=== PATIENT | female | born 1960 | race Caucasian/White ===

== ENCOUNTER 2016-09-22 18:29 | Emergency (ER) | payer SELFPAY ==
[2016-09-22] MEDS ORDERED: HYDROcodone/ACETAMIN 5-325 MG* 1 TAB PO ONE (19:43)
[2016-09-22] MEDS ORDERED: Ibuprofen TAB* 800 MG PO ONE (19:43)
--- NOTE | 2016-09-22 20:15 | RAD ---
INDICATION: Right arm pain after trip and fall injury TECHNIQUE: 2 views of the right forearm were obtained. FINDINGS: There is a minimally displaced fracture through the distal right ulnar metaphysis. Remaining visualized bones are intact and properly aligned. IMPRESSION: Minimally displaced distal right ulnar metaphysis fracture.
[2016-09-22] MEDS ORDERED: oxyCODONE/Acetamin 5/325 MG* TAB PO ONE (21:07)
[2016-09-22 21:27] VITALS: BP 126/71
--- NOTE | 2016-09-27 23:44 | ED ---
Upper Extremity Pain - HPI Summary HPI Summary: Pt here w/ fall and injury to Rt arm. Was walking through her yard and stepped on uneven ground. Landed on a rock w/ Rt forearm blocking her fall over a rock ( forearm struck rock) - pain, swelling and bruising now over forearm - wrist hurts as well. Can move fingers and elbow but is painful. Can move shoulder w/o limitations. Denies numbness, tingling, weakness. 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 - Allergies/Home Medications Allergies/Adverse Reactions: Allergies Allergy/AdvReac Type Severity Reaction Status Date / Time Penicillins Allergy Unknown Verified 09/22/16 19:13 Reaction Details PMH/Surg Hx/FS Hx/Imm Hx Previously Healthy: Yes Endocrine/Hematology History: Denies: Hx Anticoagulant Therapy, Hx Blood Disorders Infectious Disease History: No Infectious Disease History: Denies: Traveled Outside the in Last 30 Days - Social History Occupation: Unemployed Lives: With Family Alcohol Use: Daily Alcohol Amount: 1 glass wine Hx Substance Use: No Substance Use Type: Reports: None Hx Tobacco Use: No Smoking Status (MU): Never Smoked Tobacco Review of Systems Constitutional: Negative Eyes: Negative Negative: Dental Pain Negative: Chest Pain Negative: Shortness Of Breath Negative: Abdominal Pain, Vomiting, Nausea Positive: no symptoms reported Musculoskeletal: Other - see HPI Positive: Bruising - see HPI Neurological: Negative Positive: Anxious All Other Systems Reviewed And Are Negative: Yes Physical Exam Triage Information Reviewed: Yes Vital Signs On Initial Exam: Initial Vitals Temp Pulse Resp BP Pulse Ox 99.6 F 87 20 102/59 97 09/22/16 18:33 09/22/16 18:33 09/22/16 18:33 09/22/16 18:33 09/22/16 18:33 Vital Signs Reviewed: Yes Appearance: Positive: Well-Appearing, Well-Nourished, Pain Distress Skin: Positive: Warm, Dry - erythema and ecchymosis over volar aspect of Rt forearm - no blood or skin breakdown Head/Face: Positive: Normal Head/Face Inspection Eyes: Positive: Normal, EOMI, CAMERON, Conjunctiva Clear ENT: Positive: Hearing grossly normal Dental: Negative: Dental Fracture @ Neck: Positive: Supple, Nontender Respiratory/Lung Sounds: Positive: Breath Sounds Present Cardiovascular: Positive: Normal, Pulses are Symmetrical in both Upper and Lower Extremities Musculoskeletal: Positive: Strength/ROM Intact, Limited @ - Rt wrist; supination /pronation w/ forearm/wrist d/t pain, Pain @ - Rt forearm TTP Neurological: Positive: Normal, Sensory/Motor Intact, Alert, Oriented to Person Place, Time, CN Intact II-III Psychiatric: Positive: Normal Diagnostics - Vital Signs Vital Signs Temp Pulse Resp BP Pulse Ox 09/22/16 21:25 98 F 74 20 126/71 09/22/16 21:18 22 09/22/16 18:36 98.7 F 83 20 102/59 96 09/22/16 18:33 99.6 F 87 20 102/59 97 - Laboratory Lab Statement: Any lab studies that have been ordered have been reviewed, and results considered in the medical decision making process. Re-Evaluation - Re-Evaluation First Eval Change: Improved Course/Dx - Course Course Of Treatment: Pt here w/ Rt forearm pain after falling onto rock. Distal ulnar fx (non-displaced). Pain meds and splint provided. Education about care and directions re: f/u. Pt and partner agree w/ plan. Reviewed danger s/sx of when to return to ED. - Diagnoses Provider Diagnoses: Closed fracture of distal end of right ulna Discharge - Discharge Plan Condition: Stable Disposition: HOME Prescriptions: Ibuprofen TAB* [Motrin TAB* 600 MG] 600 mg PO Q6H PRN #20 tab PRN Reason: Pain oxyCODONE/Acetamin 5/325 MG* [Percocet 5/325 TAB*] 1 tab PO Q6H PRN #15 tab MDD 4 PRN Reason: Pain Patient Education Materials: Arm Fracture in Adults (ED), Splint Care (ED) Referrals: Phan Lowe MD [Medical Doctor] - Additional Instructions: Rest, ice, elevate Keep splint clean, dry and in place until seen by orthopedist - call tomorrow to schedule an appointment You may take ibuprofen (prescription supplied) for pain and swelling as well as percocet (narcotic pain medication) for breakthrough pain. The latter may cause drowsiness, nausea, constipation. Stay hydrated, avoid alcohol and take with food. *If your fingers are numb or discolored, you may loosen FELIPE wrap for 20 minutes. If symptoms persist, return to ED
== END 2016-09-22 21:25 | disposition home or self-care (01) ==
LOC: ED 18:29
DX: S52.601A Unspecified fracture of lower end of right ulna, initial encounter for closed fracture (principal); F41.9 Anxiety disorder, unspecified; W19.XXXA Unspecified fall, initial encounter; Y93.9 Activity, unspecified; Y92.9 Unspecified place or not applicable; Y99.9 Unspecified external cause status
CPT/HCPCS: 99282; A9270-GY

== ENCOUNTER 2016-12-07 12:22 | Day surgery (SDC) | payer MEDICAID ==
[~2016-12-07 12:22] MED LIST: Buffered Lidocaine 0.9% SYRIN* 5 ML/SYR SYRINGE INTRADERM ONE; Dexamethasone IV* 4 MG/ML 1 ML (4 MG) IV SLOW PU ONE; Famotidine IV* 10 MG/ML 2 ML (20 mg) IV ONE
[2016-12-07] MEDS ORDERED: Dexamethasone IV* 4 MG/ML 1 ML (4 MG) ONE ×2 (13:22)
[2016-12-07] MEDS ORDERED: Clindamycin 900 MG IVPREMIX(* 900 MG/50 ML SDV IV ONE ×2 (13:22)
[2016-12-07] MEDS ORDERED: Famotidine IV* 10 MG/ML 2 ML (20 mg) ONE ×2 (13:22)
[2016-12-07] MEDS ORDERED: Bupivacaine 0.25% SDV* 30 ML ONE ×2 (15:08)
[2016-12-07] MEDS ORDERED: Propofol* 10 MG/ML 20 ML BTL IV PUSH ONE ×2 (15:23)
[2016-12-07] MEDS ORDERED: Lidocaine 2% PF * 5 ML VIAL ONE ×2 (15:23)
[2016-12-07] MEDS ORDERED: Midazolam* 1 MG/ML 2 ML VIAL (2 MG) ONE ×2 (15:23)
[2016-12-07] MEDS ORDERED: fentaNYL* 50 MCG/ML 2 ML VIAL (100 MCG VIAL) ONE ×6 (15:24→17:56)
[2016-12-07] MEDS ORDERED: Ketorolac INJ* 30 MG/ML 1 ML VIAL ONE ×2 (15:44)
[2016-12-07] MEDS ORDERED: HYDROcodone/ACETAMIN 5-325 MG* 1 TAB PO PRN (16:02)
[2016-12-07] MEDS ORDERED: oxyCODONE/Acetamin 5/325 MG* TAB PO PRN (16:02)
[2016-12-07] MEDS ORDERED: fentaNYL* 50 MCG/ML 2 ML VIAL (100 MCG VIAL) IV PRN (16:02)
[2016-12-07] MEDS ORDERED: PROCHLORPERAZINE INJ 5 MG/ML 2 ML VIAL IV PRN (16:02)
[2016-12-07] MEDS ORDERED: EPHEDrine (Pressors)* 50 MG/ML VIAL ONE ×2 (16:06)
[2016-12-07] MEDS ORDERED: Ondansetron INJ* 2 MG/ML VIAL ONE ×2 (16:09)
[2016-12-07] MEDS ORDERED: HYDROcodone/ACETAMIN 5-325 MG* 1 TAB ONE ×2 (18:31)
[2016-12-07 19:28] VITALS: BP 107/52
--- NOTE | 2016-12-08 13:30 | OP ---
DATE OF OPERATION: 12/07/16 - [facility] DATE OF : 62 SURGEON: Phan Lowe MD ASSISTANTS: 1. GABRIELLA Queen 2. GABRIELLA Roberts An assistant plant controller was needed throughout the entirety of the procedure to aide with positioning of the arm, retraction, and instrumentation. ANESTHESIOLOGIST: Dr. Hensley. ANESTHESIA: General. 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 OPERATIVE PROCEDURE: Repair of distal ulnar shaft nonunion with distal radius autogenous bone graft. INDICATIONS: Magdalena fractured her arm on 09/22/16. She is still having severe pain at the fracture site. She has developed beginnings of a regional pain syndrome. Repeat imaging taken 10 weeks after the fracture show minimal bony bridging and minimal callus formation and progression of bony healing on serial x- rays. I talked to Magdalena about options including letting this go and giving it more time versus intervening in the form of surgery to clean up, reduce, and compress the nonunion and also augment that with some distal radius bone graft. We talked about the risks and benefits including the risk of ulnar sensory nerve injury as well as infection, nonunion, malunion, hardware irritation, and need for hardware removal. She wanted to proceed with surgery. ESTIMATED BLOOD LOSS: 10 mL. COMPLICATIONS: None. FINDINGS: Significant disorganized tissue at the nonunion site. DESCRIPTION OF PROCEDURE: Magdalena was seen in the preoperative holding area. She had a consult by the Behavior Medicine people as there is some concern about her having suicidal ideations. The consult recommended no further intervention that we could proceed with the outpatient surgery. We then brought her back to the operating room. The correct site, side, and procedure were identified. A formal time-out was performed. I began by making a longitudinal incision over the subcutaneous border of the ulna. Dissection was carried down longitudinally and care was taken distally to preserve the dorsal ulnar sensory nerve. The periosteum was split in line with the ulna and it was freed up around the nonunion site. There was a significant amount of disorganized tissue all around the nonunion site, it is bulbous and hypertrophied. This was all excised back to healthy normal bone edges to the extent possible with the use of curette, osteotome, and a rongeur. Once I had nice normal-looking ulnar bone, I went ahead and tried to reduce this. It was very stiff because of her having been several millimeters short for 10 weeks. Ultimately, I decided the best thing to do was to freshen up the bone with two oblique parallel osteotomies, taking off a millimeter of bone on each side. I brought in the sagittal saw and this was performed. This gave me great oblique bony edges that could be opposed nicely. I went ahead and tried to size my plates. I brought in a 3.5 plate to see if it would fit, although I thought it was unlikely. It indeed was too large and so it would have been way too bulky and prominent distally, and I would have only gotten at most 2 screws distally. I therefore selected a 2.7 plate off the Synthes locking mini-fragment set. This was clamped on to the distal ulnar fragment and secured with one 2.7 cortical screw. I then reduced the nonunion and clamped it into place together with the plate in place. I checked everything on mini C-arm. Everything looked good, so I went ahead and placed my first 2.7 cortical screw proximally in compression mode. I guided the compression with the use of a lobster claw clamp. This generated excellent compression. I followed this with another 2.7 cortical screw in compression mode. This generated phenomenal compression across the osteotomy site. I then placed another cortical screw distally and then one locking screw most distally in the plate. I filled the remaining 2 holes of the plate proximally with one more cortical and one locking screw as her bone had quite a bit of disuse osteopenia and was really quite soft even for being an ulnar shaft. At this point, I checked a mini C-arm imaging. I could not see the nonunion site. The position was very nice. Given the fact that she has developing a regional pain syndrome and I want to move her sooner rather than later, I wanted to give the bone extra strength and so I took a 2.4 plate off of the locking mini- fragment plate set and put this anteromedial. The prior plate was placed posterior. The 2.4 plate was clamped into place and then filled with a combination of locking and cortical screws. I wanted to put locking screws distally; however, the screw holes for the locking screws would have been blocked by the previously placed 2.7 screws, and so I used the cortical screws distally. Everything got a nice bite. I was very satisfied with the fixation. I had a little bony window where I had attempted to place a lag screw earlier and had decided not to, so I used that to pack all the distal radius bone graft that I had taken into the nonunion site. Please note that after preparing the nonunion site, I had laid the arm down and made a 1.5 cm longitudinal incision just proximal to Miquel's tubercle. Dissection was carried down longitudinally and full-thickness subperiosteal flaps were placed retracting the second dorsal compartment tendons. A small osteotome had been used to create small cortical window and then the curette was used to take a distal radius metaphyseal bone graft, which was passed off in a small cut. That wound was then irrigated and closed with 4-0 nylon suture. After I had packed my nonunion site with all the bone graft, I went ahead and closed my periosteal layer with 3-0 Polysorb suture. The skin was closed with 3 -0 Monocryl suture and Steri-Strips. All the operative sites were infiltrated with 0.25% plain Marcaine. The wounds were dressed with Xeroform, 4x4, sterile Webril, and a sugar-tong splint was placed with the arm in neutral rotation. The tourniquet was deflated. The arm had been exsanguinated and the tourniquet inflated to 250 mmHg prior to making the skin incision. The hand pinked up immediately. Total tourniquet time was just a few minutes over 120 minutes. She was then woken up and taken to the recovery room in stable condition. [id number]/[facility] #: [id number] DAJUAN
--- NOTE | 2016-12-08 16:07 | RAD ---
CPT II Codes: 6045F INDICATION: Right arm radius fracture 23 seconds of fluoroscopy time was used. Fluoroscopic services provided for referring physician. The images demonstrates internal fixation of a ulnar fracture distally with plate and screws. IMPRESSION: Fluoroscopic services provided for referring physician for internal fixation of the radius.
== END 2016-12-07 19:28 | disposition home or self-care (01) ==
LOC: OREAST 12:22
PROVIDERS: ATTEND Orthopaedic Surgery Hand Surgery
DX: S52.201K Unspecified fracture of shaft of right ulna, subsequent encounter for closed fracture with nonunion (principal); Z87.891 Personal history of nicotine dependence; G90.511 Complex regional pain syndrome I of right upper limb; W19.XXXD Unspecified fall, subsequent encounter
CPT/HCPCS: 76000; C1713; C1776; J1100; J1885; J2250; J2405; J2704; J3010

== ENCOUNTER 2016-12-07 20:40 | Emergency (ER) | payer MEDICAID ==
[2016-12-07 22:49] VITALS: BP 116/57
[2016-12-07] MEDS ORDERED: Morphine INJ* 4 MG/ML 1 ML SYRINGE IM ONE (22:50)
--- NOTE | 2016-12-24 15:31 | ED ---
Maia Raines Edward, scribed for Tanner Calix MD on 12/07/16 at 2245 . Upper Extremity Pain - HPI Summary HPI Summary: 56 y/o female presents to the ED c/o gradual onset RUE pain s/p RUE surgery today at the orthopedic surgeon's office (Dr. Snyder). Pain is aggravated with movement and severity is rated 5/10 at triage. Associated sx: swelling of R fingers (fingers have become purple), numbness/tingling in R fingers, pain in R elbow, R shoulder and R toe (burning pain). Patient had a plate and screws placed. Patient broke her RUE over a month ago and had a cast placed, which was removed on 11/06/16. PMHx regional pain syndrome starting 10 days after the patient broke her R arm. - History of Current Complaint Chief Complaint: EDGeneral Stated Complaint: POST SURGERY/NUMBNESS IN FINGERS Time Seen by Provider: 12/07/16 22:33 Hx Obtained From: Patient Mechanism Of Injury: Fall From Height Of: - over 1 month ago Onset/Duration: Started Hours Ago - Pain s/p surgery today, Started Weeks Ago - Broke R arm over 1 month ago, Still Present Timing: Constant Pain Location: Shoulder - R, Forearm - R, Hand - R arm, Finger - R fingers, Other: - R toes Aggravating Factor(s): Movement Associated Signs & Symptoms: Positive: Swelling - RUE, Numbness/Tingling - R fingers, Other - R shoulder, R toe burning pain - Allergies/Home Medications Allergies/Adverse Reactions: Allergies Allergy/AdvReac Type Severity Reaction Status Date / Time Latex Allergy Intermediate Hives Verified 12/07/16 13:27 Penicillins Allergy Rash Verified 12/07/16 13:27 Erythromycin AdvReac Nausea And Verified 12/07/16 13:44 Vomiting PMH/Surg Hx/FS Hx/Imm Hx Previously Healthy: No Endocrine/Hematology History: Denies: Hx Anticoagulant Therapy, Hx Blood Disorders - Surgical History Surgery Procedure, Year, and Place: RUE surgery 12/07/16 - plate and screws placed. wisdom teeth removed x2 Infectious Disease History: Denies: Traveled Outside the [place] in Last 30 Days - Social History Lives: With Family Alcohol Use: Daily Alcohol Amount: 1 glass wine Hx Substance Use: No Substance Use Type: Reports: None Hx Tobacco Use: No Smoking Status (MU): Never Smoked Tobacco Review of Systems Negative: Fever, Chills Negative: Erythema Negative: Sore Throat Negative: Chest Pain Negative: Shortness Of Breath, Cough Negative: Abdominal Pain, Vomiting, Nausea Negative: dysuria, hematuria Positive: Arthralgia - R hand, R fingers, R shoulder and R toes (burning pain), Edema - R fingers. Negative: Myalgia Negative: Bruising Neurological: Other - No dizziness Positive: Numbness - Numbness/tingling in R fingers All Other Systems Reviewed And Are Negative: Yes Physical Exam - Summary Physical Exam Summary: Constitutional: Well-developed, Well-nourished, Alert. (-) Distressed Skin: Warm, Dry HENT: Normocephalic; Atraumatic Eyes: Conjunctiva normal Neck: Musculoskeletal ROM normal neck. (-) JVD, (-) Stridor, (-) Tracheal deviation Cardio: Rhythm regular, rate normal, Heart sounds normal; Intact distal pulses; The pedal pulses are 2+ and symmetric. Radial pulses are 2+ and symmetric. (-) Murmur Pulmonary/Chest wall: Effort normal. (-) Respiratory distress, (-) Wheezes, (-) Rales Abd: Soft, (-) Tenderness, (-) Distension, (-) Guarding, (-) Rebound Musculoskeletal: (-) Edema Extremities: Diminished sensation in all R fingers. No swelling, good ROM in R fingers. Capillary refill less than 2 seconds. Lymph: (-) Cervical adenopathy Neuro: Alert, Oriented x3 Psych: Mood and affect Normal Triage Information Reviewed: Yes Vital Signs On Initial Exam: Initial Vitals Temp Pulse Resp BP Pulse Ox 98.5 F 62 20 116/50 100 12/07/16 21:01 12/07/16 21:01 12/07/16 21:01 12/07/16 21:01 12/07/16 21:01 Vital Signs Reviewed: Yes Procedures - Procedure Summary Procedure Summary: Old splint removed. New sugar tong splint placed on R arm - 30 cm, 3 inch orthoglass splint w/ padding. Numbness improved. Pt has no pain with movement. Diagnostics - Vital Signs Vital Signs Temp Pulse Resp BP Pulse Ox 12/07/16 21:01 98.5 F 62 20 116/50 100 - Laboratory Lab Statement: Any lab studies that have been ordered have been reviewed, and results considered in the medical decision making process. Course/Dx - Course Assessment/Plan: 56 y/o female presents to the ED c/o gradual onset RUE pain s/ p RUE surgery today at the orthopedic surgeon's office. Associated sx: numbness/ tingling in R fingers, pain in R elbow, R shoulder and R toe burning pain. Patient had a plate and screws placed. Patient broke her RUE over a month ago and had a cast placed, which was removed on 11/06/16. PMHx regional pain syndrome , starting 10 days after the patient broke her R arm. Spoke with Dr. Wolf @ 23:30, who wants us to verify no pain with passive rom in fingers. Loosen splint and verify she improves. Observe her for 15 minutes s/p splint removal. Procedure done in ED course (see procedure note). On observation after splint removal and new splint placement, pt's numbness has improved and there is no pain in the fingers with ROM. Pt will be d/c home with f/u in the morning with Dr. Lowe. - Diagnoses Provider Diagnoses: Post-operative paresthesia, Ulnar nerve compression - Physician Notifications Discussed Care of Patient With: Jose Wolf Time Discussed With Above Provider: 23:30 Instructed by Provider To: Other - Verify no pain with passive rom in fingers. Loosen splint and verify she improves. Observe her for 15 minutes s/p splint removal. Discharge - Discharge Plan Condition: Stable Disposition: HOME Patient Education Materials: Paresthesia (ED) Referrals: Phan Lowe MD [Medical Doctor] - 1 Day (Please f/u in the morning) The documentation as recorded by the Maia mckeon Edward accurately reflects the service I personally performed and the decisions made by , Tanner Calix MD.
== END 2016-12-08 00:09 | disposition home or self-care (01) ==
LOC: ED 20:40
DX: R20.2 Paresthesia of skin (principal); G56.21 Lesion of ulnar nerve, right upper limb; M79.641 Pain in right hand; M79.644 Pain in right finger(s); M25.511 Pain in right shoulder; M79.674 Pain in right toe(s); R60.0 Localized edema; Z98.890 Other specified postprocedural states; Z88.0 Allergy status to penicillin; Z88.1 Allergy status to other antibiotic agents; Z91.040 Latex allergy status
CPT/HCPCS: 96372; 99282; J2270

== ENCOUNTER 2017-09-09 19:12 | Emergency (ER) | payer OTHER ==
[2017-09-09 19:33] VITALS: BP 106/63
--- NOTE | 2017-09-09 19:50 | ED ---
Upper Extremity Pain - HPI Summary HPI Summary: 57-year-old female presents with right arm pain for the past month. 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 She states she had surgery this past December for an ulnar fracture. She states she developed complex pain syndrome afterwards. She states she still has numbness of the surgical site from after the surgey. She denies any numbness or tingling of her hands. She denies any weakness. She is not dropping anything. she has an appointment with provider tomorrow and the provider wants x-rays done. - History of Current Complaint Chief Complaint: UCUpperExtremity Stated Complaint: ARM PAIN Time Seen by Provider: 09/09/17 19:37 - Allergies/Home Medications Allergies/Adverse Reactions: Allergies Allergy/AdvReac Type Severity Reaction Status Date / Time latex Allergy Intermediate Hives Verified 09/09/17 19:40 Penicillins Allergy Intermediate Rash Verified 09/09/17 19:40 erythromycin base Allergy Nausea And Verified 09/09/17 19:40 Vomiting PMH/Surg Hx/FS Hx/Imm Hx Endocrine/Hematology History: Denies: Hx Anticoagulant Therapy, Hx Blood Disorders Musculoskeletal History: Reports: Other Musculoskeletal History - compression fracture in back Sensory History: Reports: Hx Contacts or Glasses - reading Denies: Hx Cataracts, Hx Hearing Aid Opthamlomology History: Reports: Hx Contacts or Glasses - reading Denies: Hx Cataracts - Cancer History Hx Chemotherapy: No - Surgical History Surgery Procedure, Year, and Place: wisdom teeth removed x2 Hx Anesthesia Reactions: Yes - after D&C, hard time waking up Infectious Disease History: No Infectious Disease History: Denies: Traveled Outside the [place] in Last 30 Days - Social History Alcohol Use: Daily Alcohol Amount: 1 glass wine Hx Substance Use: No Substance Use Type: Reports: None Hx Tobacco Use: No Smoking Status (MU): Former Smoker Amount Used/How Often: smoked off and on for 10 years, less than 1/2 ppd Review of Systems Negative: Fever Negative: Chest Pain Negative: Shortness Of Breath Positive: Myalgia - right arm pain All Other Systems Reviewed And Are Negative: Yes Physical Exam Triage Information Reviewed: Yes Vital Signs On Initial Exam: Initial Vitals Temp Pulse Resp BP Pulse Ox 98.5 F 68 18 106/63 99 09/09/17 19:24 09/09/17 19:24 09/09/17 19:24 09/09/17 19:24 09/09/17 19:24 Vital Signs Reviewed: Yes Appearance: Positive: Well-Appearing Skin: Positive: Warm, Dry Head/Face: Positive: Normal Head/Face Inspection Eyes: Positive: Normal, Conjunctiva Clear Respiratory/Lung Sounds: Positive: Clear to Auscultation, Breath Sounds Present Cardiovascular: Positive: Normal, RRR Musculoskeletal: Positive: Strength/ROM Intact - right arm, Other - tenderness over surgical site ulnar aspect of right arm, good pulses, senation grossly intact, capillary refill<2 secs Neurological: Positive: Sensory/Motor Intact Psychiatric: Positive: Normal Diagnostics - Vital Signs Vital Signs Temp Pulse Resp BP Pulse Ox 09/09/17 19:24 98.5 F 68 18 106/63 99 - Laboratory Lab Statement: Any lab studies that have been ordered have been reviewed, and results considered in the medical decision making process. - Radiology arm Xray Interpretation: No Acute Changes - REPORT AND IMPRESSION: Negative for internal fixation hardware component fracture or loosening. No persistent ulnar fracture plane visible. Negative for acute fracture or articular malalignment. Mild dorsal soft tissue swelling at the level of the internal fixation hardware. Radiology Interpretation Completed By: Radiologist Course/Dx - Course Course Of Treatment: 57-year-old female presents with right arm pain for the past month. 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 She states she had surgery this past December for an ulnar fracture. She states she developed complex pain syndrome afterwards. She states she still has numbness of the surgical site from after the surgey. She denies any numbness or tingling of her hands. She denies any weakness. She is not dropping anything. she has an appointment with provider tomorrow and the provider wants x-rays done. On exam full range of motion of the wrist. Surgical scars noted. Neurovascular intact. X-ray normal. We'll have follow-up with orthopedic. Told to chuyita batista. Patient understands agrees plan. - Diagnoses Differential Diagnosis/HQI/PQRI: Positive: Fracture (Closed), Strain, Sprain Provider Diagnoses: Right arm pain Discharge - Sign-Out/Discharge Documenting (check all that apply): Discharge/Admit/Transfer - Discharge Plan Condition: Good Disposition: HOME Patient Education Materials: R.I.C.E. Treatment (ED) Referrals: No Primary Care Phys,NOPCP [Primary Care Provider] - Phan Lowe MD [Medical Doctor] - Additional Instructions: Take Tylenol or ibuprofen every 6 hours as needed for pain Apply ice, rest, elevate Follow up with ortho Return to ED if develop any new or worsening symptoms - Billing Disposition and Condition Condition: GOOD Disposition: HOME
--- NOTE | 2017-09-09 20:22 | RAD ---
Indication: RIGHT forearm pain. Fall one month ago. History of ulna fracture with plating. Comparison: January 15, 2017 Technique: AP and lateral views RIGHT radius and ulna. REPORT AND IMPRESSION: Negative for internal fixation hardware component fracture or loosening. No persistent ulnar fracture plane visible. Negative for acute fracture or articular malalignment. Mild dorsal soft tissue swelling at the level of the internal fixation hardware.
== END 2017-09-09 20:30 | disposition home or self-care (01) ==
LOC: UCEAST 19:12
DX: M79.601 Pain in right arm (principal); Z88.0 Allergy status to penicillin; Z88.1 Allergy status to other antibiotic agents; Z91.040 Latex allergy status; Z87.891 Personal history of nicotine dependence
CPT/HCPCS: 99211; G0463